=== PATIENT | male | born 1955 ===

== ENCOUNTER 2023-01-24 07:18 | Outpatient (CLI) | payer MEDICARE, OTHER | END 2023-01-24 07:19 | disposition home or self-care (01) | LOC: CT 07:18 | PROVIDERS: ATTEND Internal Medicine | DX: R19.00 Intra-abdominal and pelvic swelling, mass and lump, unspecified site (principal); G47.33 Obstructive sleep apnea (adult) (pediatric) | CPT/HCPCS: 71250; 74177 ==